=== PATIENT | male | born 1965 | race Hispanic/Latino ===

== ENCOUNTER 2018-09-17 14:24 | Emergency (ER) | payer SELFPAY ==
[2018-09-17] MEDS ORDERED: FENTANYL CITR 100 MCG/2 ML ONE (14:59)
[2018-09-17] MEDS ORDERED: LIDOCAINE 1% W/EPI 1:100,000 MDV 50 ML VIAL ONE (16:04)
--- NOTE | 2018-09-17 16:19 | EDPHYS ---
Physician Documentation [facility] Name: Mehran Valerio Age: 53 yrs Sex: Male : 1965 Arrival Date: 09/17/2018 Time: 14:30 Bed 6 Private MD: ED Physician David Mcclure HPI: 09/17 15:29 This 53 yrs old Male presents to ER via EMS with complaints of Wrist Injury, Laceration jr8 To Head. 15:29 The patient or guardian reports decreased range of motion, pain, swelling, tenderness. jr8 The complaints affect the left wrist diffusely. Context: The problem was sustained at work, resulted from a fall. Onset: The symptoms/episode began/occurred acutely, today. Modifying factors: The symptoms are alleviated by holding still, splinting, the symptoms are aggravated by movement. Associated signs and symptoms: The patient has no apparent associated signs or symptoms. The patient has not experienced similar symptoms in the past. The patient has not recently seen a physician. Patient was walking at tripped at work landing face forward on the ground. Laceration to right side of head with pain to left wrist and right knee. Denies LOC. Denies head or neck pain . Historical: - Allergies: 14:32 No Known Allergies; sg - Home Meds: 14:32 None [Active]; sg - PMHx: 14:32 None; sg - PSHx: 14:32 Back Sx; sg - Immunization history:: Adult Immunizations up to date, Last tetanus immunization: up to date. - Social history:: Smoking status: Patient/guardian denies using tobacco. - Ebola Screening: : Patient negative for fever greater than or equal to 101.5 degrees Fahrenheit, and additional compatible Ebola Virus Disease symptoms Patient denies exposure to infectious person Patient denies travel to an Ebola-affected area in the 21 days before illness onset No symptoms or risks identified at this time. ROS: 15:29 Eyes: Negative for injury, pain, redness, and discharge, ENT: Negative for injury, jr8 pain, and discharge, Neck: Negative for injury, pain, and swelling, Cardiovascular: Negative for chest pain, palpitations, and edema, Respiratory: Negative for shortness of breath, cough, wheezing, and pleuritic chest pain, Abdomen/GI: Negative for abdominal pain, nausea, vomiting, diarrhea, and constipation, Back: Negative for injury and pain, Neuro: Negative for headache, weakness, numbness, tingling, and seizure. 15:29 MS/extremity: Positive for pain, tenderness, of the right knee and left wrist. Exam: 15:29 Eyes: Pupils equal round and reactive to light, extra-ocular motions intact. Lids and jr8 lashes normal. Conjunctiva and sclera are non-icteric and not injected. Cornea within normal limits. Periorbital areas with no swelling, redness, or edema. ENT: Nares patent. No nasal discharge, no septal abnormalities noted. Tympanic membranes are normal and external auditory canals are clear. Oropharynx with no redness, swelling, or masses, exudates, or evidence of obstruction, uvula midline. Mucous membranes moist. Neck: Trachea midline, no thyromegaly or masses palpated, and no cervical lymphadenopathy. Supple, full range of motion without nuchal rigidity, or vertebral point tenderness. No Meningismus. Chest/axilla: Normal chest wall appearance and motion. Nontender with no deformity. No lesions are appreciated. Cardiovascular: Regular rate and rhythm with a normal S1 and S2. No gallops, murmurs, or rubs. Normal PMI, no JVD. No pulse deficits. Respiratory: Lungs have equal breath sounds bilaterally, clear to auscultation and percussion. No rales, rhonchi or wheezes noted. No increased work of breathing, no retractions or nasal flaring. Abdomen/GI: Soft, non-tender, with normal bowel sounds. No distension or tympany. No guarding or rebound. No evidence of tenderness throughout. Back: No spinal tenderness. No costovertebral tenderness. Full range of motion. Skin: Warm, dry with normal turgor. Normal color with no rashes, no lesions, and no evidence of cellulitis. Neuro: Awake and alert, GCS 15, oriented to person, place, time, and situation. Cranial nerves II-XII grossly intact. Motor strength 5/5 in all extremities. Sensory grossly intact. Cerebellar exam normal. Normal gait. 15:29 Musculoskeletal/extremity: Extremities: grossly normal except: noted in the right knee: Mild bruising and abrasion noted to patellar region of right knee. Mild tenderness to palpation. No crepitus or obvious deformity noted, noted in the left wrist: Pain, swelling, and tenderness noted to left wrist with decreased ROM secondary to pain. Normal sensation. 2+ pulses radial bilaterally , Circulation is intact in all extremities. Sensation intact. 15:29 Head/face: Noted is a laceration(s), that is deep, that is linear, 2.5 cm(s), of the jr8 forehead. Vital Signs: 14:33 BP 159 / 119 RA Supine (auto/lg); Pulse 105; Resp 24 S; Temp 98.4(TE); Pulse Ox 99% on sg R/A; Weight 115.67 kg; Pain 8/10; 15:29 BP 157 / 96; Pulse 100; Resp 17; Pulse Ox 99% on R/A; Pain 6/10; sg 16:20 BP 140 / 88; Pulse 87; Resp 16; Pulse Ox 98% on R/A; Pain 6/10; sg Procedures: 16:16 Splinting: Splint applied to left wrist using Orthoglass splint, applied by tech. jr8 Examined by me, post splint application: neurovascular intact, 2+ distal pulses palpable, brisk capillary refill noted, Patient tolerated well. Laceration: 16:16 Wound Repair of 2.5cm ( 1.0in ) subcutaneous laceration to face. Linear shaped.. jr8 Minimal bleeding noted.. Distal neuro/vascular/tendon intact. Anesthesia: Local anesthetic administered with 3 mls of 1% lidocaine w/ Epi. Wound prep: Extensive cleansing with betadine, Wound irrigation with saline, Wound explored extensively, Copious irrigation. Skin closed with 3 5-0 Prolene using interrupted sutures and sterile technique. Patient tolerated well. MDM: 14:30 Patient medically screened. jr8 16:16 Data reviewed: vital signs, nurses notes, radiologic studies, plain films. Data jr8 interpreted: Pulse oximetry: on room air is 99 %. Interpretation: normal. Counseling: I had a detailed discussion with the patient and/or guardian regarding: the historical points, exam findings, and any diagnostic results supporting the discharge/admit diagnosis, radiology results, the need for outpatient follow up, a orthopedic surgeon, to return to the emergency department if symptoms worsen or persist or if there are any questions or concerns that arise at home. 09/17 14:36 Order name: XRAY Knee RIGHT 3 view 8 09/17 14:36 Order name: XRAY Chest Pa And Lat (2 Views) 8 09/17 14:30 Order name: IV; Complete Time: 14:45 jr8 09/17 14:36 Order name: XRAY Wrist LEFT 3 view 8 09/17 15:29 Order name: Splint - Volar Wrist Splint; Complete Time: 15:55 jr8 Administered Medications: 14:45 Drug: fentaNYL (PF) 50 mcg Route: IVP; Site: right antecubital; sg 15:30 Follow up: Response: No adverse reaction; Pain is decreased sg Disposition: 09/18 06:55 Co-signature as Attending Physician, David Mcclure MD I agree with the assessment and benja plan of care. Disposition: 09/17/18 16:18 Discharged to Home. Impression: Distal left radius fracuture without displacement , Laceration without foreign body of scalp. - Condition is Stable. - Discharge Instructions: Laceration Care, Adult, Wrist Fracture Treated With Immobilization. - Prescriptions for Ibuprofen 800 mg Oral Tablet - take 1 tablet by ORAL route every 12 hours As needed take with food; 20 tablet. - Medication Reconciliation Form, Thank You Letter, Antibiotic Education, Prescription Opioid Use form. - Follow up: Carmine Koehler MD; When: 2 - 3 days; Reason: Recheck today's complaints, Continuance of care, Re-evaluation by your physician. - Problem is new. - Symptoms have improved. - Notes: Sutures to be checked and taken out in 5-6 days Signatures: Dispatcher [employer] EDMS Bubba Darnell RN RN sg Anderson, Corey, MD MD cha Roszak, Josh, PA PA jr8 Corrections: (The following items were deleted from the chart) 09/17 15:30 15:30 Splint - Wrist ordered. 8 jr8 16:31 16:18 09/17/2018 16:18 Discharged to Home. Impression: Distal left radius fracuture sg without displacement ; Laceration without foreign body of scalp. Condition is Stable. Forms are Medication Reconciliation Form, Thank You Letter, Antibiotic Education, Prescription Opioid Use. Follow up: Dr. Carmine Koehler; When: 2 - 3 days; Reason: Recheck today's complaints, Continuance of care, Re-evaluation by your physician. Problem is new. Symptoms have improved. jr8
--- NOTE | 2018-09-17 16:19 | ER ---
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 Transition of care: patient was not received from another setting of care. Onset of symptoms was September 17, 2018. Risk Assessment: Do you want to hurt yourself or someone else? Patient reports no desire to harm self or others. Initial Sepsis Screen: Does the patient meet any 2 criteria? No. Patient's initial sepsis screen is negative. Does the patient have a suspected source of infection? No. Patient's initial sepsis screen is negative. Care prior to arrival: Cervical collar in place. Placed on backboard. 14:30 Method Of Arrival: EMS: [facility] sg 14:30 Acuity: EMILY 4 sg Historical: - Allergies: 14:32 No Known Allergies; sg - Home Meds: 14:32 None [Active]; sg - PMHx: 14:32 None; sg - PSHx: 14:32 Back Sx; sg - Immunization history:: Adult Immunizations up to date, Last tetanus immunization: up to date. - Social history:: Smoking status: Patient/guardian denies using tobacco. - Ebola Screening: : Patient negative for fever greater than or equal to 101.5 degrees Fahrenheit, and additional compatible Ebola Virus Disease symptoms Patient denies exposure to infectious person Patient denies travel to an Ebola-affected area in the 21 days before illness onset No symptoms or risks identified at this time. Screenin:32 Abuse screen: Denies threats or abuse. Denies injuries from another. Nutritional sg screening: No deficits noted. Tuberculosis screening: No symptoms or risk factors identified. Never had TB. Fall Risk None identified. Assessment: 14:32 Reassessment: Patient appears in no apparent distress at this time. Ovidio ALICEA at bedside sg for removal of backboard and c-collar. General: Appears in no apparent distress. uncomfortable, well groomed, well developed, well nourished, Behavior is calm, cooperative, appropriate for age. Pain: Complains of pain in left subscapular area and left wrist and forehead, right knee Quality of pain is described as tender, throbbing. 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 Speech is normal, Facial symmetry appears normal, Pupils are PERRLA. Cardiovascular: Patient's skin is warm and dry. Chest pain is denied. Respiratory: Airway is patent Respiratory effort is even, unlabored, Respiratory pattern is regular, symmetrical. GI: Abdomen is round non-distended, Reports tolerance of fluids, tolerance of food. : No signs and/or symptoms were reported regarding the genitourinary system. EENT: No signs and/or symptoms were reported regarding the EENT system. Derm: Skin is pink, warm \T\ dry. Musculoskeletal: Circulation, motion, and sensation intact. Range of motion: Swelling present in left wrist Reports pain in left wrist and right knee. 14:33 Injury Description: Laceration sustained to forehead is contaminated, superficial, 0.5 sg to 2.5 cm long, not bleeding, a small amount of bleeding noted at this time. Vital Signs: 14:33 BP 159 / 119 RA Supine (auto/lg); Pulse 105; Resp 24 S; Temp 98.4(TE); Pulse Ox 99% on sg R/A; Weight 115.67 kg; Pain 8/10; 15:29 BP 157 / 96; Pulse 100; Resp 17; Pulse Ox 99% on R/A; Pain 6/10; sg 16:20 BP 140 / 88; Pulse 87; Resp 16; Pulse Ox 98% on R/A; Pain 6/10; sg ED Course: 14:30 Patient arrived in ED. jr8 14:30 Ovidio Yap PA is PHCP. jr8 14:30 David Mcclure MD is Attending Physician. jr8 14:31 Bubba Darnell, EDDIE is Primary Nurse. sg 14:32 Arm band placed on. sg 14:36 Triage completed. sg 14:40 Patient has correct armband on for positive identification. Bed in low position. Call sg light in reach. Side rails up X2. Pulse ox on. NIBP on. Warm blanket given. Head of bed elevated. 14:40 No provider procedures requiring assistance completed. Inserted saline lock: 20 gauge sg in right antecubital area, using aseptic technique. 15:08 XRAY Knee RIGHT 3 view In Process Unspecified. EDMS 15:09 XRAY Chest Pa And Lat (2 Views) In Process Unspecified. EDMS 15:09 XRAY Wrist LEFT 3 view In Process Unspecified. EDMS 15:50 Wound care: to laceration located on forehead was cleaned with soap and water. sg 15:50 Assist provider with laceration repair on forehead that was between 2.6 to 7.5 cm using sg sutures. Set up tray. Performed by Ovidio ALICEA Dressed with 4X4s, Neosporin, Patient tolerated well. 15:53 Orthoglass splint: Volar splint applied on left arm Inspected by Ovidio ALICEA. ms 16:17 Carmine Koehler MD is Referral Physician. jr8 16:25 IV discontinued, intact, bleeding controlled, No redness/swelling at site. Pressure sg dressing applied. Administered Medications: 14:45 Drug: fentaNYL (PF) 50 mcg Route: IVP; Site: right antecubital; sg 15:30 Follow up: Response: No adverse reaction; Pain is decreased sg Outcome: 16:18 Discharge ordered by . jr8 16:25 Discharged to home ambulatory, with family. sg 16:25 Condition: good 16:25 Discharge instructions given to patient, Instructed on discharge instructions, follow up and referral plans. no drinking with medication, no driving heavy equipment, medication usage, safety practices, wound care, Demonstrated understanding of instructions, follow-up care, medications, wound care, splint care, Prescriptions given X 1. 16:31 Patient left the ED. sg Signatures: Dispatcher [employer] EDBubba Montoya RN RN sg Solis, Maria ms Roszak, Josh, PA PA jr8
--- NOTE | 2018-09-18 11:29 | RAD REPORT ---
EXAM DESCRIPTION: Lu[facility] Jones (2 Views)09/17/2018 3:07 pm CLINICAL HISTORY: Chest COMPARISON: None FINDINGS: Right hemidiaphragm is elevated. Blunting of the right lateral costophrenic sulcus. Lungs appear clear of acute infiltrate. Heart is normal size IMPRESSION: Blunting of the right lateral costophrenic sulcus likely either represents pleural thick ening or small pleural effusion
--- NOTE | 2018-09-18 11:29 | RAD REPORT ---
EXAM DESCRIPTION: RAD - Knee Right 3 View - 09/17/2018 3:07 pm CLINICAL HISTORY: Right knee pain status post injury FINDINGS: Horizontal lucency is present within the medial tibial plateau equivocal for a nondisplace d fracture. No dislocation
--- NOTE | 2018-09-18 11:29 | RAD REPORT ---
EXAM DESCRIPTION: RAD - Wrist Left 3 View - 09/17/2018 3:07 pm CLINICAL HISTORY: Left wrist pain status post injury FINDINGS: Minimally displaced fracture involves the distal radius. No dislocation. On the lateral view there appears to be an avulsion fracture of the triquetrum
== END 2018-09-17 16:31 | disposition home or self-care (01) ==
LOC: ER 14:24
PROC: 0JQ00ZZ Repair Scalp Subcutaneous Tissue and Fascia, Open Approach (ICD-10-PCS; principal; 2018-09-17)
PROC: 2W3DX1Z Immobilization of Left Lower Arm using Splint (ICD-10-PCS; 2018-09-17)
DX: S52.502A Unspecified fracture of the lower end of left radius, initial encounter for closed fracture (principal); S01.01XA Laceration without foreign body of scalp, initial encounter; W01.0XXA Fall on same level from slipping, tripping and stumbling without subsequent striking against object, initial encounter; Y93.01 Activity, walking, marching and hiking
CPT/HCPCS: 71046; 96374; 99284; J3010